=== PATIENT | female | born 1980 | race African-American/Black ===

== ENCOUNTER 2020-10-31 13:46 | Day surgery (SDC) | payer BC ==
[2020-10-26 16:34] LABS: BASOPHILS # (AUTO) 0.1 X10'3 (0-0.2); BASOPHILS % (AUTO) 0.7 % (0-1); EOSINOPHILS # (AUTO) 0.2 X10'3 (0-0.9); EOSINOPHILS % (AUTO) 2.9 % (0-6); LYMPHOCYTES # (AUTO) 2.4 X10'3 (1.1-4.8); MEAN CORPUSCULAR HGB CONC 32.6 g/dL (33.0-36.5); MEAN CORPUSCULAR VOLUME 79.6 FL (78-98); MEAN PLATELET VOLUME 8.8 FL (7.4-10.4); MONOCYTES # (AUTO) 0.6 X10'3 (0-0.9); NEUTROPHILS # (AUTO) 3.6 X10'3 (1.8-7.7); NEUTROPHILS % (AUTO) 52.4 % (42-75); PRE OP HEMATOCRIT 40.6 % (35.0-45.0); PRE OP HEMOGLOBIN 13.2 g/dL (12.0-16.0); PRE OP PLATELET COUNT 253 X10'3 (140-440); RED BLOOD COUNT 5.09 X10'6 (4.20-5.60)
[2020-10-26 17:01] LABS: HCG SERUM QL NEGATIVE
[~2020-10-31] VITALS: Ht 157.5 cm; Wt 104.1 kg
[2020-10-31] VITALS (7 sets, daily range): BP systolic 120–142; BP diastolic 70–82
[~2020-10-31 13:46] MED LIST: BCP PO; ceFOXitin 2GM-NS 100mL ADDvant 100 ML IV ONE; famotidine 20mg tablet PO ONE; ringers solution, lacted 1,000 ML IV SCH
[2020-10-31] MEDS ORDERED: LIDOcaine 1% (10mg/ml) 2ml vial ONE (14:28)
[2020-10-31] MEDS ORDERED: hydrALAZINE 20mg/ml inj. IV PRN (15:00)
[2020-10-31] MEDS ORDERED: labetalol 20mg/4ml (5mg/ml) syringe IV PRN (15:00)
[2020-10-31] MEDS ORDERED: meperidine/PF 25mg/ml syringe IV PRN ×3 (15:00)
[2020-10-31] MEDS ORDERED: proCHLORperazine 10 MG/2 ml inj IV PRN (15:00)
[2020-10-31] MEDS ORDERED: ondansetron/PF 4mg/2ml inj IV PRN (15:00)
[2020-10-31] MEDS ORDERED: ketorolac trometh. 30mg/ml inj. IV ONE (15:00)
[2020-10-31] MEDS ORDERED: acetaminophen 1,000mg/100ml IV 100 ML IV PRN (15:00)
[2020-10-31] MEDS ORDERED: ringers solution, lacted 1,000 ML IV SCH (15:00)
[2020-10-31] MEDS ORDERED: morphine 4 MG/ML inj SYRINge IV PRN (15:00)
[2020-10-31] MEDS ORDERED: morphine 2 MG/ML inj. syringe IV PRN (15:00)
[2020-10-31 15:20] LABS: URINE HCG NEGATIVE (NEG)
[2020-10-31] MEDS ORDERED: epiNEPHrine 1 mg/ml inj ONE (16:31)
[2020-10-31] MEDS ORDERED: BUPIVAcaine/PF 2.5 mg/ml (0.25%) 30ml vial ONE (16:31)
[2020-10-31] MEDS ORDERED: sevoflurane 250ml liquid IH ONE (16:42)
[2020-10-31] MEDS ORDERED: fentaNYL/PF 50MCG/1 ML 2ML syringe ONE (16:45)
[2020-10-31] MEDS ORDERED: midazolam 2 mg/2 ml injection ONE (16:47)
[2020-10-31] MEDS ORDERED: LIDOcaine 2% 5ml jelly ONE (16:49)
[2020-10-31] MEDS ORDERED: LIDOcaine 2% (20mg/ml) 5ml vial ONE (16:59)
[2020-10-31] MEDS ORDERED: dexamethasone sod phosphate 4mg/ml inj. ONE (16:59)
[2020-10-31] MEDS ORDERED: propofol inj 20 ML IV ONE (16:59)
[2020-10-31] MEDS ORDERED: ondansetron/PF 4mg/2ml inj ONE (16:59)
[2020-10-31] MEDS ORDERED: rocuronium 10mg/ml inj IV ONE (16:59)
[2020-10-31] MEDS ORDERED: glycopyrrolate 0.2mg/ml inj ONE (17:27)
[2020-10-31] MEDS ORDERED: neostigmine methylsulfate 1 MG/ML 10ml vial ONE (17:27)
[2020-10-31] MEDS ORDERED: acetaminophen 1,000mg/100ml IV 100 ML IV ONE (17:43)
--- NOTE | 2020-10-31 17:50 | NUR ---
ADMITTED TO PACU FROM OR ACCOMPANIED BY ANESTHESIA. INTIAL PHYSICAL ASSESSMENT DONE AND RECORDED. REPORT RECEIVED FROM ANESTHESIA.
--- NOTE | 2020-10-31 18:30 | NUR ---
DISCHARGE CRITERIA MET, DISCHARGE INSTRUCTIONS GIVEN, DEMONSTRATES VERBAL UNDERSTANDING. DISCHARGED HOME IN GOOD CONDITION.
== END 2020-10-31 18:30 | disposition home or self-care (01) ==
LOC: PAS 13:46
PROVIDERS: ATTEND Specialist
DX: Z30.2 Encounter for sterilization (principal); Z79.899 Other long term (current) drug therapy; Z98.890 Other specified postprocedural states
CPT/HCPCS: 36415; 58670; 76937; 81025; 82948; 84703; 85025; J0131; J0171; J0694; J1100; J2001; J2250; J2405; J2704; J2710; J3010; J3490; A4618; J7120